=== PATIENT | male | born 1945 | race American Indian/Alaskan Native ===

== ENCOUNTER 2019-10-22 20:15 | Emergency (ER) | payer MEDICARE ==
[2019-10-22 20:46] VITALS: BP 141/92
[2019-10-22 23:34] LABS: Basophils # (Auto) 0.1 K/mm3 (0.0-0.1); Basophils % (Auto) 0.7 % (0.0-1.8); Eosinophils % (Auto) 0.2 % (0.0-4.3); Hematocrit 49.2 % (35.5-45.6); Hemoglobin 16.3 gm/dl (11.8-15.2); Lymphocytes # (Auto) 1.6 K/mm3 (1.2-5.4); Lymphocytes % (Auto) 16.1 % (13.4-35.0); Mean Corpuscular HGB Conc 33 % (32-34); Mean Corpuscular Volume 82 fl (84-94); Monocytes # (Auto) 0.9 K/mm3 (0.0-0.8); Monocytes % (Auto) 9.3 % (0.0-7.3); Platelet Count 220 K/mm3 (140-440); Red Blood Count 5.99 M/mm3 (3.65-5.03)
[2019-10-22 23:52] LABS: Calcium 9.7 mg/dL (8.4-10.2)
[2019-10-22 23:53] LABS: Albumin 4.1 g/dL (3.9-5)
[2019-10-23] MEDS ORDERED: SODIUM CHLORIDE 0.9% 1000 ML 1,000 ML IV ONE (01:52)
--- NOTE | 2019-10-23 01:58 | XRay Report ---
ACUTE ABDOMINAL SERIES INDICATION / CLINICAL INFORMATION: NO BM IN 7 DAYS. COMPARISON: None available. FINDINGS: Upright and supine views of the abdomen demonstrate a mild amount of stool in the colon. I see no chanda dence of bowel obstruction, free air or mass effect. There are multiple renal calculi bilaterally, la rger on the right than the left. The accompanying chest radiograph demonstrates a normal heart size and no acute pulmonary disease. Signer Name: Abhinav Kelly MD Signed: 10/23/2019 1:54 AM Workstation Name: [id number]
[2019-10-23 02:09] LABS: Hematocrit 46.9 % (35.5-45.6); Hemoglobin 15.3 gm/dl (11.8-15.2); Mean Corpuscular HGB Conc 33 % (32-34); Mean Corpuscular Volume 82 fl (84-94); Platelet Count 204 K/mm3 (140-440); Red Blood Count 5.69 M/mm3 (3.65-5.03); Red Cell Distribution Width 14.3 % (13.2-15.2)
--- NOTE | 2019-10-23 02:28 | Cat Scan Report ---
CT HEAD/BRAIN WO CON INDICATION / CLINICAL INFORMATION: Altered mental status. TECHNIQUE: All CT scans at this location are performed using CT dose reduction for ALARA by means of automated e xposure control. COMPARISON: None available. FINDINGS: There is mild generalized cerebral atrophy. No focal lesion or mass effect is seen. There is no evide nce of intracranial hemorrhage or acute major vessel occlusion. The calvarium is intact. The visualiz ed paranasal sinuses and mastoid air cells are clear. IMPRESSION: No acute abnormality. Signer Name: Abhinav Kelly MD Signed: 10/23/2019 2:24 AM Workstation Name: [id number]
--- NOTE | 2019-10-23 02:29 | Cat Scan Report ---
CT CERVICAL SPINE WO CON INDICATION / CLINICAL INFORMATION: Fall with neck pain and weakness. TECHNIQUE: All CT scans at this location are performed using CT dose reduction for ALARA by means of automated e xposure control. COMPARISON: None available. FINDINGS: There is mild to moderate generalized spondylosis. The prevertebral soft tissues are normal. There is no evidence of fracture or subluxation. I see no evidence of a focal disc herniation or epidural hem atoma. The visualized lung apices are clear. IMPRESSION: No acute abnormality. Signer Name: Abhinav Kelly MD Signed: 10/23/2019 2:25 AM Workstation Name: [id number]
--- NOTE | 2019-10-23 02:32 | Cat Scan Report ---
CT THORACIC SPINE WO CON INDICATION / CLINICAL INFORMATION: Leg weakness. TECHNIQUE: All CT scans at this location are performed using CT dose reduction for ALARA by means of automated e xposure control. COMPARISON: None available. FINDINGS: There is mild thoracolumbar scoliosis. The vertebral body heights and disc spaces are well-maintained . There is no evidence of fracture, subluxation or destructive lesion. I see no evidence of a focal d isc herniation or epidural hematoma. There are bilateral renal calculi. There is probable right hydronephrosis. IMPRESSION: 1. No acute osseous abnormality. 2. Bilateral nephrolithiasis. Probable right-sided hydronephrosis. Signer Name: Abhinav Kelly MD Signed: 10/23/2019 2:28 AM Workstation Name: [id number]
--- NOTE | 2019-10-23 02:42 | Cat Scan Report ---
CT LUMBAR SPINE WO CON INDICATION / CLINICAL INFORMATION: Back pain and paralysis. TECHNIQUE: All CT scans at this location are performed using CT dose reduction for ALARA by means of automated e xposure control. COMPARISON: None available. FINDINGS: There is moderate degenerative disc disease at L4-5. There is mild anterolisthesis of L4 on L5, likel y degenerative. There are hypertrophic changes involving the facet joints in the lower lumbar spine b ilaterally, most prominent at L4-5. I see no evidence of fracture or destructive lesion. I do not fer ntify a focal disc herniation. There is bilateral nephrolithiasis. There is marked right pelvocaliectasis and ureterectasis to the s uperior SI joint. There are 2 adjacent calculi in the right ureter at that site measuring approximate ly 5 to 6 mm each in size. IMPRESSION: 1. Spondylosis, most prominent at L4-5. Anterolisthesis of L4 on L5 is likely degenerative. 2. Bilateral nephrolithiasis 3. 2 calculi in the right ureter near the upper SI joint are causing marked hydronephrosis. Signer Name: Abhinav Kelly MD Signed: 10/23/2019 2:38 AM Workstation Name: [id number]
--- NOTE | 2019-10-23 04:15 | Cat Scan Report ---
CT OF THE ABDOMEN AND PELVIS WITHOUT CONTRAST INDICATION / CLINICAL INFORMATION: Right hydronephrosis. Stone search. TECHNIQUE: All CT scans at this location are performed using CT dose reduction for ALARA by means of automated e xposure control. COMPARISON: 03/21/15. FINDINGS: ABDOMEN: There is marked right pelvocaliectasis and ureterectasis. There is mild right perinephric so ft tissue stranding. There are multiple renal calculi bilaterally, larger on the right than the left. There is early staghorn calculus formation in the mid to lower right kidney. There are multiple gallstones. The liver, spleen, bile ducts, pancreas and bowel demonstrate no signi ficant abnormality. There is bilateral adrenal hyperplasia. There are few mildly enlarged lower para- aortic lymph nodes. There are mildly prominent mesenteric lymph nodes. The visualized lung bases are clear. PELVIS: The right ureter is dilated into the pelvis there are 3 calculi in the right ureter at the le margaret of the mid to lower SI joint. The largest calculus measures approximately 6 mm. There are a coupl e of calculi in the urinary bladder, the largest of which measures approximately 8.5 mm. There is mod erate enlargement of the prostate gland. There is a small fat-containing right inguinal hernia withou t complication. There are multiple enlarged lymph nodes throughout both iliac chains and in both ingu inal regions. There are degenerative changes the L4-5 level. IMPRESSION: 1. Marked right-sided hydronephrosis. There are 3 calculi in the distal right ureter the level of the mid to lower SI joint. There are also 2 calculi in the urinary bladder. Bilateral nephrolithiasis. 2. Moderate enlargement of the prostate gland. 3. Generalized lymphadenopathy raises the possibility of lymphoma/leukemia. The findings are similar to the prior study.. 4. Cholelithiasis. Signer Name: Abhinav Kelly MD Signed: 10/23/2019 4:11 AM Workstation Name: [email or web address]
[2019-10-23 05:49] LABS: Bacteria,Urine 1+ /HPF (Negative); Bilirubin,Urine NEG (Negative); Blood,Urine SM (Negative); Color,Urine Yellow (Yellow); Mucus,Urine FEW /HPF; Urobilinogen,Urine < 2.0 mg/dL (<2.0)
--- NOTE | 2019-10-23 06:14 | Emergency Department Report ---
ED Abdominal Pain HPI - General Chief Complaint: Abdominal Pain Stated Complaint: NO BM X7DAYS Time Seen by Provider: 10/23/19 01:10 Source: patient, family Mode of arrival: Ambulatory Limitations: No Limitations - History of Present Illness MD Complaint: abdominal pain - Related Data Home Medications Medication Instructions Recorded Confirmed Last Taken Aspirin [Aspirin BABY CHEW TAB] 81 mg PO QDAY 04/07/15 04/07/15 04/06/15 Mometasone Furoate [Nasonex] 2 nsinhaler IH PRN PRN 04/07/15 04/07/15 Unknown Sennosides/Docusate Sodium [Stool 1 each PO DAILY 04/07/15 04/07/15 04/06/15 Softener Tablet] Tolterodine Tartrate 2 mg PO BID 04/07/15 04/07/15 04/06/15 Allergies Allergy/AdvReac Type Severity Reaction Status Date / Time Penicillins Allergy Severe Swelling Verified 04/07/15 08:08 ED Review of Systems ROS: Stated complaint: NO BM X7DAYS Other details as noted in HPI ED Past Medical Hx - Past Medical History Previous Medical History?: Yes Hx Diabetes: Yes (diet controlled) Hx Headaches / Migraines: Yes (r/t sinus problems) Hx Kidney Stones: Yes Hx HIV: No - Surgical History Past Surgical History?: No - Social History Smoking Status: Former Smoker Substance Use Type: None - Medications Home Medications: Home Medications Medication Instructions Recorded Confirmed Last Taken Type Aspirin [Aspirin BABY CHEW TAB] 81 mg PO QDAY 04/07/15 04/07/15 04/06/15 History Mometasone Furoate [Nasonex] 2 nsinhaler IH PRN PRN 04/07/15 04/07/15 Unknown History Sennosides/Docusate Sodium [Stool 1 each PO DAILY 04/07/15 04/07/15 04/06/15 History Softener Tablet] Tolterodine Tartrate 2 mg PO BID 04/07/15 04/07/15 04/06/15 History ED Physical Exam - General Limitations: No Limitations ED Course Vital Signs 10/22/19 20:45 Temperature 99.3 F Pulse Rate 85 Respiratory 21 Rate Blood Pressure 141/92 O2 Sat by Pulse 96 Oximetry ED Medical Decision Making - Lab Data Result diagrams: 10/23/19 01:32 10/22/19 23:14 Critical care attestation.: If time is entered above; I have spent that time in minutes in the direct care of this critically ill patient, excluding procedure time. ED Disposition Condition: Stable Referrals: PRIMARY CARE,MD [Primary Care Provider] - 3-5 Days
== END 2019-10-23 07:45 | disposition home or self-care (01) ==
LOC: ED 20:15
DX: R10.9 Unspecified abdominal pain (principal); E11.9 Type 2 diabetes mellitus without complications; Z79.82 Long term (current) use of aspirin; Z87.891 Personal history of nicotine dependence; Z88.0 Allergy status to penicillin; Z79.899 Other long term (current) drug therapy
CPT/HCPCS: 36415; 70450; 72125; 72128; 72131; 74022; 74176; 80053; 81001; 85025; 85027; 99284; J7030